=== PATIENT | male | born 1990 | race Two or more races ===

== ENCOUNTER → 2017-01-09 | Outpatient (CLI) | payer BC ==
[2014-02-26 11:00] VITALS: BP 98/49
[~2017-01-09] MED LIST: DIVA500T2 PO; PHEN100C PO
== END | disposition home or self-care (01) ==
LOC: LAB 10:43
PROVIDERS: ATTEND Psychiatry & Neurology Neurology with Special Qualifications in Child Neurology
DX: G40.309 Generalized idiopathic epilepsy and epileptic syndromes, not intractable, without status epilepticus (principal)
CPT/HCPCS: 36415; 80185

== ENCOUNTER → 2017-01-17 | Outpatient (CLI) | payer BC ==
[2014-02-26 11:00] VITALS: BP 98/49
[~2017-01-17] MED LIST changes: +GADOBUTROL 7.5 MMOL/7.5 ML VIAL IV ONE
--- NOTE | 2017-01-17 13:39 | KCIC ---
PROCEDURE MRI brain without and with contrast. HISTORY Generalized come pulse of epilepsy, seizures in the last few weeks, history of astrocytoma TECHNIQUE Multiplanar, multi sequential pre and post contrast MR imaging was performed of the brain. Contrast: 7 cc Gadavist COMPARISON February 25, 2016 and February 23, 2015 FINDINGS As seen previously, there has been left frontal parietal craniotomy. There is resection cavity of the left frontal lobe with cortical involvement as seen previously. There is again T2 and FLAIR hyperintense signal abnormality about the resection cavity of the left frontal lobe, no associated enhancement. T2 and FLAIR hyperintense signal abnormality along the anterior margin of resection cavity especially very slightly greater such as seen on axial FLAIR image 21 series 6 comparing with previous image 20 series 6. Signal abnormality more posteriorly is similar in extent. No new separate focus of signal abnormality is identified. Ventricular size is stable. There is no new midline shift or extra-axial fluid collection. There is no new nodular parenchymal or leptomeningeal enhancement. There is no evidence of a recent infarct. There is preservation of the major arterial intracranial flow voids at the skull base. There is increased, moderate left greater than right ethmoid air cell mucosal thickening and left frontal sinus mucosal thickening. There is increased mild maxillary sinus mucosal thickening bilaterally. Sphenoid sinus mucosal thickening on the left is fairly similar. Mastoid air cells are aerated. Cerebellar tonsils are normal location. There is preservation of marrow signal of the clivus. There is no new abnormality of the pineal gland or pituitary gland. IMPRESSION 1. There is again resection cavity with cortical involvement of the left frontal lobe. There is persistent nonenhancing T2 and FLAIR hyperintense signal abnormality about the resection cavity of the left frontal lobe, possibly slightly increased anteriorly. Findings are concerning for component of residual nonenhancing neoplasm. There is no abnormal intracranial enhancement. Additional coronal FLAIR images on future followup as performed with today's exam is advised. Electronically signed by: Bg Nolasco MD (Jan 17, 2017 13:37:57)
== END | disposition home or self-care (01) ==
LOC: KCIC MRI 11:05
PROVIDERS: ATTEND Psychiatry & Neurology Neurology with Special Qualifications in Child Neurology
DX: G40.309 Generalized idiopathic epilepsy and epileptic syndromes, not intractable, without status epilepticus (principal)
CPT/HCPCS: 70553; A9585

== ENCOUNTER → 2017-07-05 | Outpatient (CLI) | payer BC ==
[2014-02-26 11:00] VITALS: BP 98/49
[~2017-07-05] MED LIST changes: +LEVE500T11 PO
--- NOTE | 2017-07-05 11:57 | KCIC ---
MRI Brain with and without contrast History: Continued seizures, astrocytoma Technique: Multiplanar, multi sequential pre and postcontrast MR imaging was performed of the brain. Contrast: 7 cc Gadavist Comparison: January 17, 2017 and February 25, 2016 Findings: There again has been left frontoparietal craniotomy. There is again resection cavity of the left frontal lobe with cortical involvement as seen previously. There is persistent T2 and FLAIR hyperintense abnormality near the resection cavity not associated with significant enhancement. Degree of signal abnormality is similar compared with the more recent exam, again relatively increased comparing with older exam more anteriorly as seen on the January exam. No new focus a separate signal abnormality or enhancement is identified. There is no new midline shift. Ventricular size is stable, within normal limits. There is improved aeration of the left sphenoid sinus. There is minimal bilateral maxillary sinus mucosal thickening. There is increased anterior left ethmoid air cell mucosal thickening, also of the left frontal sinus. Mastoid air cells are aerated. There is preservation of the major arterial intracranial flow voids at the skull base. There is no evidence of recent infarct. Cerebellar tonsils are normal in location. Impression: 1. There is again resection cavity of the left frontal lobe with cortical involvement. Associated T2 and FLAIR hyperintense abnormality is similar compared with the recent exam, again somewhat increased anteriorly compared with older exam as demonstrated on the January 2017 exam. Again component of residual nonenhancing neoplasm is possible. As stated previously, continued additional coronal FLAIR sequence when follow-up is performed is recommended. No new intracranial enhancement is identified. 2. There has been some variable change of paranasal sinus mucosal thickening as stated. Electronically signed by: Nigel Nolasco MD (07/05/2017 11:53 AM) [id number]
== END | disposition home or self-care (01) ==
LOC: KCIC MRI 10:26
PROVIDERS: ATTEND Psychiatry & Neurology Neurology with Special Qualifications in Child Neurology
DX: C71.9 Malignant neoplasm of brain, unspecified (principal); R56.9 Unspecified convulsions
CPT/HCPCS: 70553; A9585

== ENCOUNTER → 2017-12-12 | Outpatient (CLI) | payer BC ==
[2017-12-12] MEDS: GADOBUTROL 7.5 MMOL/7.5 ML VIAL IV (11:37)
== END | disposition home or self-care (01) ==
LOC: KCIC MRI 10:15
DX: C71.9 Malignant neoplasm of brain, unspecified (principal); R56.9 Unspecified convulsions; Z98.890 Other specified postprocedural states
CPT/HCPCS: 70553; A9585

== ENCOUNTER → 2018-06-13 | Outpatient (CLI) | payer BC ==
[2014-02-26 11:00] VITALS: BP 98/49
--- NOTE | 2018-06-13 10:12 | KCIC ---
MRI Brain with and without contrast History: Cerebral astrocytoma, seizures Technique: Multiplanar, multi sequential pre and postcontrast MR imaging was performed of the brain. Contrast: 7 cc Gadavist Comparison: December 12, 2017; July 05, 2017; February 23, 2014 Findings: There again has been left frontal parietal craniotomy. There is again left parasagittal frontal region resection cavity with cortical involvement, no new associated enhancement in this region. There is again T2 and FLAIR hyperintense abnormality about the margin of resection cavity greater posteriorly which is fairly similar compared with recent exams. This in greatest dimension measures about 2.7 cm CC by 2 cm transverse by about 4.1 cm AP. Ventricular size is stable, within normal limits. There is no new significant signal abnormality or enhancement of the brain parenchyma. There is some residual mild left frontal sinus mucosal thickening. There is patchy anterior ethmoid air cell mucosal thickening greater on the left also present previously, somewhat increased on the right. There is mild bilateral maxillary sinus mucosal thickening fairly similar. There are no air-fluid levels of the paranasal sinuses. Mastoid air cells are aerated. There is preservation of the major arterial intracranial flow voids at the skull base. Impression: 1. Findings are similar compared with more recent exams. There is again nonenhancing T2 and FLAIR hyperintense signal abnormality about margin of left frontal resection cavity concerning for component of residual nonenhancing neoplasm, no new abnormal intracranial enhancement. Electronically signed by: Nigel Nolasco MD (06/13/2018 10:08 AM) [facility]-[email or web address]
== END | disposition home or self-care (01) ==
LOC: KCIC MRI 07:48
PROVIDERS: ATTEND Psychiatry & Neurology Neurology with Special Qualifications in Child Neurology
DX: C71.9 Malignant neoplasm of brain, unspecified (principal); Z86.69 Personal history of other diseases of the nervous system and sense organs
CPT/HCPCS: 70553; A9585

== ENCOUNTER → 2019-01-01 | Outpatient (CLI) | payer BC ==
[2014-02-26 11:00] VITALS: BP 98/49
[~2019-01-01] MED LIST changes: -LEVE500T11 PO; +LEVE500T21 PO
--- NOTE | 2019-01-02 09:29 | RAD ---
EXAMINATION: Magnetic resonance imaging (MRI) of the brain and brainstem without and with contrast 01/01/2019 3:30 PM HISTORY: Astrocytoma. History of tumor resection. Generalized epilepsy. TECHNIQUE: Multiplanar multi-weighted MRI of the brain and brainstem was performed without and with intravenous contrast using the general brain protocol. Contrast information: 7.5 mL Gadolinium based contrast COMPARISON: MRI brain June 13, 2018, December 12, 2017. FINDINGS: Postoperative changes are identified from left frontal craniotomy with resection of left superior frontal gyrus mass. There is residual FLAIR/T2 signal hyperintensity involving the posterior left superior frontal gyrus, not significantly changed dating back to June 13, 2018 and December 12, 2017. There is no associated enhancement. No new FLAIR signal alteration is identified. The superior sagittal sinus demonstrates normal venous flow. The corpus callosum is normal in shape and signal intensity. The posterior fossa is unremarkable. The pituitary and sella are normal. The brainstem and craniocervical junction are unremarkable. Diffusion weighted images reveal no hyperintensities to suggest acute cerebral infarction. The susceptibility weighted sequences reveal no new evidence of acute or chronic hemorrhage. The ventricles are normal in size and position without evidence of hydrocephalus. There are no areas of abnormal contrast enhancement. The paranasal sinuses are normal with exception of mild mucosal thickening involving the anterior ethmoid air cells. The visualized portions of the mastoids are unremarkable. The orbits appear normal. Normal flow voids are demonstrated in the carotid arteries and basilar artery. IMPRESSION: Status post left frontal craniotomy with resection of left superior frontal gyrus tumor. There is residual FLAIR signal alteration without associated enhancement along the posterior margin of the resection cavity. No evidence for tumor progression. Electronically signed by: Franny Pepper MD (01/02/2019 9:26 AM) [facility]-[email or web address]
== END | disposition home or self-care (01) ==
LOC: MRI 15:00
PROVIDERS: ATTEND Psychiatry & Neurology Neurology with Special Qualifications in Child Neurology
DX: J34.89 Other specified disorders of nose and nasal sinuses (principal); G40.309 Generalized idiopathic epilepsy and epileptic syndromes, not intractable, without status epilepticus; Z85.841 Personal history of malignant neoplasm of brain
CPT/HCPCS: 70553; A9585

== ENCOUNTER → 2019-06-28 | Outpatient (CLI) | payer BC ==
[2014-02-26 11:00] VITALS: BP 98/49
[~2019-06-28] MED LIST changes: -GADOBUTROL 7.5 MMOL/7.5 ML VIAL IV ONE; +GADOTERATE 7.5 MMOL/15ML VIAL. IVP ONE
--- NOTE | 2019-06-28 15:27 | KCIC ---
BRAIN WO/W CONTRAST History: Cerebral astrocytoma. Technique: Multiplanar, multi sequential pre and postcontrast MR imaging was performed of the brain. Contrast: 14 mL Dotarem. Comparison: January 01, 2019. June 13, 2018. Feb 23 2015 and October 28, 2014. Findings: Postoperative changes left frontal craniotomy for resection of left superior frontal astrocytoma. T2/FLAIR hyperintensity surrounding the resection cavity, unchanged compared to prior. No pathologic enhancement. No acute infarct. No intracranial hemorrhage. No mass effect. No hydrocephalus. Imaged orbits are unremarkable. Mild scattered paranasal sinus mucosal thickening. Mastoid air cells are clear. Impression: 1. Unchanged left frontal astrocytoma resection with adjacent residual nonenhancing tumor. No evidence of tumor progression. Electronically signed by: Earl Hendrix DO (06/28/2019 3:24 PM) [id number]
== END | disposition home or self-care (01) ==
LOC: KCIC MRI 11:24
PROVIDERS: ATTEND Psychiatry & Neurology Neurology with Special Qualifications in Child Neurology
DX: C71.0 Malignant neoplasm of cerebrum, except lobes and ventricles (principal); J34.89 Other specified disorders of nose and nasal sinuses; G40.309 Generalized idiopathic epilepsy and epileptic syndromes, not intractable, without status epilepticus
CPT/HCPCS: 70553; A9575

== ENCOUNTER → 2020-03-25 | Outpatient (CLI) | payer BC ==
[2014-02-26 11:00] VITALS: BP 98/49
--- NOTE | 2020-03-25 11:07 | KCIC ---
EXAMINATION: Magnetic resonance imaging (MRI) of the brain and brainstem without and with contrast 03/25/2020 9:30 AM HISTORY: Generalized epilepsy, cerebral astrocytoma. TECHNIQUE: Multiplanar multi-weighted MRI of the brain and brainstem was performed without and with intravenous contrast using the general brain protocol. Contrast information: Gadolinium based contrast COMPARISON: June 28, 2019, June 13, 2018. FINDINGS: Partial resection of a left frontal lobe mass is noted with residual FLAIR signal alteration involving the left superior frontal gyrus. Extent of FLAIR signal alteration and T2 signal hyperintensity appears stable over prior examinations. No suspicious enhancement is identified. The superior sagittal sinus demonstrates normal venous flow. The corpus callosum is normal in shape and signal intensity. The posterior fossa is unremarkable. The pituitary and sella are normal. The brainstem and craniocervical junction are unremarkable. Diffusion weighted images reveal no hyperintensities to suggest acute cerebral infarction. The susceptibility weighted sequences reveal no evidence of acute or chronic hemorrhage. The ventricles are normal in size and position without evidence of hydrocephalus. The paranasal sinuses are normal. The visualized portions of the mastoids are unremarkable. The orbits appear normal. Normal flow voids are demonstrated in the carotid arteries and basilar artery. IMPRESSION: Stable appearance of a FLAIR hyperintense mass in the left superior frontal gyrus without evidence for disease progression. Electronically signed by: Franny Pepper MD (03/25/2020 11:04 AM) [facility]
== END ==
LOC: KCIC MRI 09:47
PROVIDERS: ATTEND Psychiatry & Neurology Neurology with Special Qualifications in Child Neurology
DX: C71.0 Malignant neoplasm of cerebrum, except lobes and ventricles (principal); G40.309 Generalized idiopathic epilepsy and epileptic syndromes, not intractable, without status epilepticus; R22.0 Localized swelling, mass and lump, head
CPT/HCPCS: 70553; A9575

== ENCOUNTER → 2021-03-22 | Outpatient (CLI) | payer BC ==
[2014-02-26 11:00] VITALS: BP 98/49
--- NOTE | 2021-03-23 10:55 | KCIC ---
MRI BRAIN WO+W Date: 03/22/2021 3:52 PM Indication: CEREBRAL ASTROCYTOMA. Follow up MR for astrocytoma, seizures. Comparison: 03/25/2020. Technique: Multiplanar multisequence MRI of the brain was performed with and without intravenous cont rast using the standard protocol. 14 cc Clariscan contrast was administered intravenously during the exam. Findings: Postsurgical changes of left frontal craniotomy and left superior frontal mass resection. Unchanged T 2/FLAIR hyperintensity in the left superior frontal gyrus. No abnormal enhancement. No acute infarct. No acute hemorrhage. The ventricles are normal in size and configuration without hy drocephalus. The pituitary and sella are normal. No Chiari malformation. The visualized upper cervical spine is no rmal. The visualized orbits and globes are normal. The visualized paranasal sinuses are clear. The mastoid air cells are clear. Normal flow voids within the vertebral, basilar, and internal carotid arteries indicating patency. IMPRESSION: No evidence of disease progression. Unchanged left superior frontal nonenhancing mass. Electronically signed by: Nigel Crenshaw MD (03/23/2021 10:53 AM) [id number]
== END ==
LOC: KCIC MRI 15:32
PROVIDERS: ATTEND Psychiatry & Neurology Neurology with Special Qualifications in Child Neurology
DX: C71.0 Malignant neoplasm of cerebrum, except lobes and ventricles (principal); G40.309 Generalized idiopathic epilepsy and epileptic syndromes, not intractable, without status epilepticus
CPT/HCPCS: 70553; A9575